=== PATIENT | male | born 1985 | race Caucasian/White ===

== ENCOUNTER 2021-04-27 11:06 | Outpatient (CLI) | payer OTHER ==
[~2021-04-27] VITALS: Ht 175.3 cm; Wt 104.3 kg
[~2021-04-27 11:06] MED LIST: ALBUTEROL 90 MCG/ACT 8GM HFA INHALER INH PRN; ALBUTEROL SULFATE 2.5 MG/0.5 ML INH NEB SOLN INH PRN; EPINEPHrine INJ 1 MG/ML 1ML AMP IM PRN; NS 1,000 ML IV SCH; diphenhydrAMINE 50MG/ML VIAL (J1200) IV PRN; methylPREDNISolone 125MG 2ML VIAL IV PRN
[2021-04-27] MEDS ORDERED: CASIRIVIMAB (REGN10933) 600 MG, IMDEVIMAB (REGN10987) 600 MG in NS 250 ML IV ONE (12:00)
[2021-04-27 12:15] VITALS: BP 126/74
[2021-04-27 12:45] VITALS: BP 110/72
[2021-04-27 13:15] VITALS: BP 130/73
[2021-04-27 14:15] VITALS: BP 118/72
== END 2021-04-27 14:15 | disposition home or self-care (01) ==
LOC: M OPCLI4PR 11:06
PROVIDERS: ATTEND Family Medicine
DX: U07.1 COVID-19 (principal)

== ENCOUNTER → 2022-01-05 | Outpatient (CLI) | payer OTHER | LOC: M RAD 10:38 | PROVIDERS: ATTEND Physician Assistant | DX: N50.811 Right testicular pain (principal); N43.3 Hydrocele, unspecified; N43.42 Spermatocele of epididymis, multiple ==

== ENCOUNTER → 2022-06-02 | Outpatient (CLI) | payer OTHER ==
[2022-06-03 23:07] LABS: TESTOSTERONE FREE (DIRECT) 6.6 pg/mL (8.7-25.1)
== END ==
LOC: M LAB 08:43
PROVIDERS: ATTEND Family Medicine
DX: R53.83 Other fatigue (principal)

== ENCOUNTER → 2022-06-17 | Outpatient (CLI) | payer OTHER ==
[2022-06-17 11:00] LABS: FOLLICLE STIMULATING HORMONE 2.3 mIU/ML (1.4-18.1); LUTEINIZING HORMONE 1.8 mIU/ML (1.5-9.3)
[2022-06-18 23:08] LABS: TESTOSTERONE FREE (DIRECT) 8.7 pg/mL (8.7-25.1); TRANSFERRIN 260 mg/dL (177-329)
== END ==
LOC: M LAB 09:02
PROVIDERS: ATTEND Family Medicine
DX: R79.89 Other specified abnormal findings of blood chemistry (principal)

== ENCOUNTER → 2022-07-20 | Outpatient (CLI) | payer OTHER ==
[2022-07-20 09:39] LABS: CORTISOL AM 8.3 UG/DL (4.3-22.4)
[2022-07-20 09:42] LABS: PROLACTIN 11.23 NG/ML (2.1-17.7); THYROID STIMULATING HORMONE 1.704 uIU/ML (0.55-4.78)
[2022-07-20 09:43] LABS: FREE T4 1.13 NG/DL (0.89-1.76)
[2022-07-21 17:09] LABS: TESTOSTERONE FREE (DIRECT) 7.5 pg/mL (8.7-25.1)
== END ==
LOC: M LAB 08:47
PROVIDERS: ATTEND Family Medicine
DX: E34.9 Endocrine disorder, unspecified (principal)